=== PATIENT | female | born 1955 | race Caucasian/White ===

== ENCOUNTER 2020-08-09 21:40 | Observation (INO) | payer OTHER, SELFPAY ==
--- NOTE | 2020-08-09 20:30 | PC.NURSE ---
Patient admitted to room 106 and brought in via EMS. Patient placed on telemetry and oriented to the room. call light within reach. Patient bed in low position, and side rails up x2. Patient is alert and oriented.
--- NOTE | 2020-08-09 20:57 | P.HP_ITS ---
Providers/Chief Complaint Admitting Physician: Paras Bowser MD Chief Complaint: elevated troponin History of Present Illness Elizabeth Barrientos is a 64 year old female who presented to the [facility] with chief complaint of generalized weakness. Patient is stating that for last 1 to 2 weeks she has been feeling extremely weak, she has not noticed any diarrhea, vomiting, chest pain, orthopnea, PND, dysuria, fever, productive cough, headache, blurry vision. She has been compliant with her medications, she is smoking 1 pack/day, her p.o. intake has decreased significantly, sometimes she would only drink 1 soda at night. 2 to 3 days ago she sustained a fall because she was not able to bear any weight on her legs, her assisted her to get up. She has not sustained another fall so far, she also has home health services, once per week, she follows up with wound care at [place]. She has not noticed increased output from her colostomy which was done to prevent decubitus ulcer contamination. Previously she had indwelling catheter which was removed as well. Patient is stating that she was diagnosed with pneumonia 3 weeks ago for which she was treated with antibiotics, she is unsure about the antibiotic name. Patient was investigated at [facility], she had hypokalemia, hypomagnesemia which was corrected, her EKG showed sinus rhythm with nonspecific T wave changes, first troponin 57, second troponin 54, she did not complain of active chest pain shortness of breath apnea PND she was transferred to our facility for further investigation Covid antigen test negative, she has been afebrile, hypertensive, was saturating well on room air, Records reviewed At the time my evaluation her systolic blood pressures in the 170s, she saturating well on room air, complaining of generalized weakness no active chest pain shortness of breath, she is afebrile Heart rate in 70s, systolic blood pressure 180s, 96 saturation on room air, afebrile White count 9.3 Hemoglobin 13.9 Platelets 343 Sodium 133 Potassium 2.6 Calcium 9.2 Creatinine 0.7 Glucose 155 Albumin 4 Magnesium 1.0 Baseline troponin 57 Second troponin 54 Chest x-ray revealed interstitial infiltrate atelectasis versus pneumonia UA color yellow pH 7 Nitrites negative, ketones negative Blood trace Protein 3+ White count 6-10 RBC 0-2 Epithelial cells 0-5 Review of Systems Const: Reports: chills, body aches, change in appetite, fatigue and malaise; Denies: fever(s) or change in weight Eyes: Denies: change in vision ENMT: Denies: throat pain Card: Denies: chest pain Resp: Reports: non-productive cough GI: Denies: abdominal pain, diarrhea or constipation : Denies: flank pain Musc: Reports: muscle weakness Skin/Breast: Reports: lesions, dry skin, striae and other (Sacral ulcer,) Neuro: Denies: headache(s), difficulty walking, frequent falls, vertigo or Slurred speech present Psych: Reports: depression; Denies: anxiety Endo: Denies: polyuria Jake/Lymph: Denies: easy bruising All/Imm: Denies: urticaria Medications/Allergies Allergies Allergy/AdvReac Type Severity Reaction Status Date / Time atorvastatin AdvReac ADR-Cramping Verified 08/09/20 21:10 of the Muscles PFSH Acute PFSH: Medical History (Updated 08/09/20 @ 21:31 by Paras Bowser MD) 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) Atrial flutter Colostomy care COPD (chronic obstructive pulmonary disease) Depression Hypothyroidism Nicotine dependence Peripheral neuropathy Restless leg syndrome Sacral ulcer Type 2 diabetes mellitus Surgical History (Updated 08/09/20 @ 21:31 by Paras Bowser MD) H/O esophagogastroduodenoscopy H/O hernia repair H/O: hysterectomy History of removal of Port-a-Cath Hx of colonoscopy S/P cholecystectomy S/P tran-rectal abscess repair, follow-up exam Tubal ligation status Family History Other Cancer Social History Smoking and tobacco status: heavy tobacco smoker cigarettes [ Other cigarette details: 1 pack/day ] Alcohol intake: never Substance/Drug Use: never Lives independently: Yes Household members: spouse Housing: House Physical Exam Narrative: EXAM NARRATIVE: Middle-age female Appears more than stated age Extremely dehydrated Saturating well on room air Not showing signs of active distress Dry skin EOMI, PERRLA No neurological deficit No facial asymmetry S1, S2 variable Chest congestion, bilateral breath sounds with mild rhonchi no active wheezing Abdomen soft nontender, colostomy bag area nonsensitive Lower extremity no edema gangrene ulcer, dry skin noted Patient appears lethargic She is awake, alert oriented x3 GCS 15 Noticed skin excoriation A&P Assessment and plan (1) Generalized weakness: Status: Acute (2) Hypokalemia: Status: Acute (3) Hypomagnesemia: Status: Acute (4) Dehydration: Status: Acute (5) Elevated troponin I measurement: Status: Acute Additional A&P Information Generalized weakness Patient has severe dehydration along electrolyte abnormality which could contribute to her myalgias Covid antigen negative done at [place] Chest x-ray revealed interstitial infiltrate atelectasis versus pneumonia, no leukocytosis, patient has been afebrile recently was treated for bacterial pneumonia No active cough, shortness of breath, chest pain, dysuria She has been taking Lasix 20 mg, her p.o. intake has been extremely poor, which might have contributed towards electrolyte abnormality We will check TSH, Physical therapy evaluation Would keep her on maintenance fluid normal saline with potassium supplementation Hypokalemia and hypomagnesemia Patient is stating that she has not noticed increased output from colostomy No vomiting Replenish electrolytes Stop Lasix Elevated troponin No active chest pain, no shortness of breath orthopnea PND Negative delta troponin, EKG is not showing infarctive ischemic changes, In my opinion this is type II GA secondary to severe electrolyte abnormality, monitor overnight on telemetry floor We will obtain echo in the morning to see if she has any wall motion abnormalities Sacral decubitus ulcer Indwelling Smith catheter has been removed Home health services, she changes her wound dressing every other day, her assist her Open ulcer around mid gluteal region with maceration of wound edges, will need dry dressing, has mild yellow color drainage on the dressing Extremely dry skin Dehydration and history of hypothyroidism I will give her moisturizing agent, check TSH Encouraged her p.o. fluid Full code Consistent carb diet DVT prophylaxis Lovenox Attestations Medical Necessity Statement*: I am anticipating discharge in less than 48 hours currently need management for severe DrFlash Wilde abnormality, echo in the morning to rule out wall motion abnormality for nonspecific increase in troponin s Time Spent in Patient Care: (>than 50% of time spent in counselling and/or direct pt care on unit) . 50mins Coding Level of Care Code Acute Hunter Trapper for Chg Fwd Diagnoses Generalized weakness R53.1 Hypokalemia E87.6 Hypomagnesemia E83.42 Dehydration E86.0 Elevated troponin I measurement R77.8
[2020-08-09 20:58] VITALS: BMI 28.2
[2020-08-09 21:00] VITALS: BP 181/94; PULSE 74; RESP 19; TEMP 36.4; O2SAT 95
--- NOTE | 2020-08-09 21:33 | PC.NURSE ---
Patient states she is allergic to anesthesia. She says it causes muscle cramping and she could hardly move same with Lipitor.
[2020-08-09] MEDS: ALPRAZolam 0.25 mg Tablet 0.125 MG PO (22:20)
[2020-08-09] MEDS: enoxaparin 40 mg/0.4 mL Syringe SUBCUT (22:20)
[2020-08-09] MEDS: sodium chlor 0.45% +KCl 20 mEq 20 MEQ/1,000 ML BAG 75 MEQ IV (22:23)
[2020-08-09] MEDS: hyDRALAzine 20 mg/mL INJ 1 mL 5 MG IVP (22:29)
[2020-08-09 22:36] LABS: Glucose Point of Care 148 mg/dL (70-110)
[2020-08-09 23:23] VITALS: BP 152/64; PULSE 75; RESP 21; TEMP 36.6; O2SAT 94
[2020-08-09 23:46] LABS: SARS Covid-2 Antigen Negative (Negative)
[2020-08-10 01:31] VITALS: PULSE 57; RESP 18; O2SAT 95
[2020-08-10 04:00] VITALS: BP 156/96; PULSE 81; RESP 24; TEMP 36.8; O2SAT 93
[2020-08-10 05:39] LABS: Basophils # 0.1 10^3/uL (0.0-0.1); Basophils % 0.9 %; Eosinophils # 0.2 10^3/uL (0.0-0.8); Eosinophils % 2.1 %; Hematocrit 36.9 % (37.0-47.0); Hemoglobin 12.4 g/dL (11.5-15.3); Lymphocytes # 1.6 10^3/uL (0.8-4.8); Lymphocytes % 18.4 %; Mean Corpuscular HGB Conc 33.6 g/dL (30.0-36.0); Mean Corpuscular Hemoglobin 31.6 pg (28.0-34.0); Mean Corpuscular Volume 94.1 fL (81-99); Mean Platelet Volume 9.3 fL (7.4-10.4); Monocytes # 0.8 10^3/uL (0.2-0.9); Monocytes % 8.7 %; Neutrophils # 6.07 10^3/uL (1.8-7.7); Neutrophils % 69.6 %; Nucleated Red Blood Cells % 0 %; Platelet Count 304 10^3/cmm (130-400); Red Blood Count 3.92 10^6/uL (4.1-5.3); Red Cell Distribution Width 12.7 % (12.1-15.1); White Blood Count 8.7 10^3/uL (4.0-10.0)
[2020-08-10 06:11] LABS: Procalcitonin 0.08 ng/mL (0-0.5)
[2020-08-10 06:12] LABS: Anion Gap 13.9 (5-19); Blood Urea Nitrogen 6 mg/dL (8-23); Calcium 8.5 mg/dL (8.5-10.5); Carbon Dioxide 27 mmol/L (22-29); Chloride 96 mmol/L (98-107); Glucose 134 mg/dL (65-115); Osmolality Calculated 278 mOsm/kg (285-295); Sodium 134 mmol/L (136-145); Thyroid Stimulating Hormone 1.85 uIU/mL (0.27-4.20)
[2020-08-10] MEDS: levothyroxine 88 mcg Tablet PO (06:23)
[2020-08-10] MEDS: HYDROcodone-acetaminophen 5-325 mg Tablet 1 TAB PO ×3 (06:23→14:34)
[2020-08-10 06:37] LABS: Potassium 2.9 mmol/L (3.5-5.1)
[2020-08-10 06:40] LABS: Glucose Point of Care 148 mg/dL (70-110)
[2020-08-10 07:13] VITALS: BP 174/79; PULSE 82; RESP 26; TEMP 35.9; O2SAT 97
[2020-08-10] MEDS: metoprolol succinate ER (24 HR) 50 mg Tablet PO (08:13)
[2020-08-10] MEDS: aspirin 325 mg EC Tablet PO (08:13)
[2020-08-10] MEDS: pantoprazole DR 40 mg Tablet PO (08:13)
[2020-08-10] MEDS: lisinopril 20 mg Tablet PO ×2 (08:13→17:31)
--- NOTE | 2020-08-10 09:23 | PC.CHAP ---
Pastoral Care Encounter/Spiritual Assessment Type of Contact [] Declined automotive service writer visit [] Patient/Family/Request visit [] Outpatient visit [] Follow-up visit [] Physician referral [] Code/Alert [x] Routine visit [] Staff referral [] Actively dying [] Patient sleeping [] Family support [] [] Out of room [] Palliative care [] [] Receiving care in room [] Pre-surgical visit [] Trauma [] Long length of stay [] ICU visit [] Other: Relational/Emotional Strength [] Patient feels connected with others/family/visitors/staff [] Distress [] Loneliness/isolation [] Abandonment Spirituality of Patient [] Person of Diane [] Attends Faith of their Diane [] Believes in Prayer [] Reads Bible or Church materials [] There are Spiritual issues to be addressed Rn Endocrinology Interventions [x] Prayer [x] Active listening [x] Non-anxious presence [x] Spiritual/emotional support [] Crisis/trauma care [] Spiritual counseling [] Bereavement support [] Provided bereavement packet [] Provided Bible/devotional materials [] Provided toy/stuffed animal, coloring book to patient or family member [] Provided Communion [] Anointing/Irene [] Salvation [x] Completed spiritual assessment [] Other: Impact on Illness or Injury [] Angry [] Fearful [] Anxious [] Often cries [] Exhaustion [] Unable to work [] Unable to attend protestant [] Unable to walk/stand [] Unable to read [] Unable to drive [] Unable to eat/drink [] Unable to sleep [] Unable to be with family [] Patient intubated [] Other: Summary patient in pain. Time spent with patient 5 min
[2020-08-10] MEDS: insulin glargine 100 units/1 mL 40 UNIT SUBCUT (09:37)
[2020-08-10 11:02] VITALS: BP 174/83; PULSE 60; PULSE 72; RESP 18; RESP 26; TEMP 36.4; O2SAT 94; O2SAT 95
[2020-08-10 11:33] LABS: Glucose Point of Care 134 mg/dL (70-110)
[2020-08-10 12:34] LABS: Magnesium 1.8 mg/dL (1.7-2.3); Troponin T (5th) Once 67 ng/L (0-10)
[2020-08-10] MEDS: potassium chloride ER 20 mEq Tablet 40 MEQ PO (12:56)
[2020-08-10] MEDS: ALPRAZolam 0.25 mg Tablet 0.125 MG PO (14:34)
--- NOTE | 2020-08-10 14:41 | PC.NURSE ---
Pt requested, new bandages for her elbows, my elbow is bleeding both dressing intact, small amount of drainage noted on the left. . Pt requested pain and nerve med, both admin, see MAR. Pt requested colostomy to be burped. Burping of the colostomy done. Room check, BSC emptied. TV on and channel selected. No mre needs per pt.
[2020-08-10 15:03] VITALS: BP 180/98; PULSE 73; RESP 21; TEMP 37; O2SAT 93
[2020-08-10 16:21] LABS: Glucose Point of Care 155 mg/dL (70-110)
[2020-08-10 17:41] LABS: Troponin T (5th) Once 63 ng/L (0-10)
[2020-08-10 18:10] VITALS: BP 180/98; PULSE 73; RESP 21; TEMP 37; O2SAT 93
--- NOTE | 2020-08-10 18:10 | PC.NURSE ---
Discharge instructions provided and discussed. Carenotes for dehydration,hypomagnesia, hypokalemia, generalized weakness, magnesium citrate and potassium supplement reviewed with pt and spouse. Follow up appts to be made by pt and discussions needed with PCP , discussed. No further questions. Pt discharged. To POV at entrance via W/C. All belongings with pt.
--- NOTE | 2020-08-10 19:29 | P.DS_ITS ---
Discharge Providers Date of Admission: 08/09/20 21:40 Date of Discharge: August 10, 2020 Attending Provider at Admission: Paras Bowser MD Attending Provider at Discharge: Leroy Brunner Diagnoses at Discharge Discharge Diagnosis (1) Generalized weakness: Status: Acute (2) Hypokalemia: Status: Acute (3) Hypomagnesemia: Status: Acute (4) Dehydration: Status: Acute (5) Elevated troponin I measurement: Status: Acute (6) Poorly-controlled hypertension: Status: Acute (7) Poor appetite: Status: Acute (8) Gastroparesis: Status: Acute Reason for Visit Reason for Visit: elevated troponin Hospital Course Hospital Course 64-year-old lady with history of COPD, DM 2, current smoker, hypothyroidism, sacral decubitus ulcer, indwelling Smith catheter, was transferred over for observation from [facility] after finding of elevated troponin, presenting there after 1-2 weeks of generalized weakness. There is noted to be dehydrated, with hypokalemia, hypomagnesemia. 2 to 3 days previously she s ustained a fall. Reported 3 weeks previously was treated for pneumonia. On admission noted to be dehydrated, received IV hydration. Hypokalemia and hypomagnesemia were replaced. She was tested by rapid antigen for COVID-19 while in the hospital which was negative. PCR testing was being requested at [facility] prior to transfer. Eran higher than at [facility] at 67-63, but overall stable without significant elevation. She has remained chest pain-free. Reassessed echocardiogram on which was found to have normal ejection fraction, 63%, grade 2 diastolic dysfunction. No regional wall motion abnormality was noted. She felt much better after rehydration, replacement of electrolytes. TSH is normal. She felt strong enough to return home. We did discuss concern for possible underlying coronary disease given multiple risk factors. Elevated risk of ACS. Discussed options with staying here for additional assessment by stress testing, versus outpatient testing. She is preferring to follow-up on outpatient basis. Understands to seek medical attention immediately in case of any concerning symptoms. Given dehydration at this time her Lasix is discontinued. Please reassess again when this may be needed. Discussed with her. She also has quite poor oral intake. This along with diuresis may be responsible for her electrolyte deficiencies. Does have diabetes, and does report symptoms of food staying a long time in her stomach. Discussed with her strategy of more frequent smaller meals throughout the day. Will also refer her for additional assessment by gastric emptying study. Please consider referral for additional endoscopic evaluation given smoking history, elevated risk of gastric cancer. Follow-up on these assessments, as well as please continue follow-up with chronic conditions. She does appear to have suboptimally controlled blood pressure. Please continue to reassess and assist with smoking cessation. Please see full notes and work-up for details. Do not hesitate to contact with any questions. Physical Exam Const: COMMON NORMALS: no acute distress, patient oriented x3 and alert GENERAL APPEARANCE: comfortable ORIENTATION/CONSCIOUSNESS: Yes awake OTHER: Sitting up in bed. Reports feeling much better, stronger, wants to return home. HENMT: COMMON NORMALS: oropharynx normal Neck/C-Spine: COMMON NORMALS: no JVD Resp: COMMON NORMALS: normal respiratory effort and clear to auscultation bilaterally AUSCULTATION: clear to auscultation bilaterally Cardio: COMMON NORMALS: no JVD, regular rhythm, S1 normal heart sound present, S2 normal heart sound present and No murmurs present (Cardio) RHYTHM: regular rhythm HEART SOUNDS: S1 normal heart sound present and S2 normal heart sound present GI: COMMON NORMALS: Normal to inspection, nondistended, normoactive bowel sounds present, Soft to palpation and non-tender PALPATION: Yes Soft to palpation Extremity: COMMON NORMALS: no joint enlargement and no pedal edema Neuro: COMMON NORMALS: patient oriented x3 and moves all extremities SENSORIUM/ORIENTATION: Yes alert Skin: COMMON NORMALS: no rashes or lesions noted GENERAL SKIN EXAM: no rashes or lesions noted and dry skin Discharge Data Data Completed and Pending: Completed Studies During Hospitalization Category Date Time Status CV echo complete* [id number] Routine Ultrasound 08/10/20 21:40 Completed Labs from last 24 hours 08/10/20 08/10/20 08/10/20 17:10 16:12 11:03 WBC RBC Hgb Hct MCV MCH MCHC RDW Plt Count MPV Neut % (Auto) Lymph % (Auto) [place] % (Auto) Eos % (Auto) Baso % (Auto) Neut # (Auto) Lymph # (Auto) [place] # (Auto) Eos # (Auto) Baso # (Auto) Nucleated RBC % (a uto) Nucleated RBCs # Sodium Potassium Chloride Carbon Dioxide Anion Gap BUN Creatinine GFR Calculation Glucose POC Glucose 155 134 Calculated Osmolal ity Calcium Magnesium Troponin T Gen 5 n g/L 63 H Procalcitonin TSH SARS-CoV-2 Ag (Rap id) 08/10/20 08/10/20 08/10/20 06:35 04:34 04:34 WBC RBC Hgb Hct MCV MCH MCHC RDW Plt Count MPV Neut % (Auto) Lymph % (Auto) [place] % (Auto) Eos % (Auto) Baso % (Auto) Neut # (Auto) Lymph # (Auto) [place] # (Auto) Eos # (Auto) Baso # (Auto) Nucleated RBC % (a uto) Nucleated RBCs # Sodium Potassium Chloride Carbon Dioxide Anion Gap BUN Creatinine GFR Calculation Glucose POC Glucose 148 Calculated Osmolal ity Calcium Magnesium 1.8 Troponin T Gen 5 n g/L 67 H Procalcitonin TSH SARS-CoV-2 Ag (Rap id) 08/10/20 08/10/20 08/10/20 04:34 04:34 04:34 WBC 8.7 RBC 3.92 L Hgb 12.4 Hct 36.9 L MCV 94.1 MCH 31.6 MCHC 33.6 RDW 12.7 Plt Count 304 MPV 9.3 Neut % (Auto) 69.6 Lymph % (Auto) 18.4 [place] % (Auto) 8.7 Eos % (Auto) 2.1 Baso % (Auto) 0.9 Neut # (Auto) 6.07 Lymph # (Auto) 1.6 [place] # (Auto) 0.8 Eos # (Auto) 0.2 Baso # (Auto) 0.1 Nucleated RBC % (a uto) 0 Nucleated RBCs # 0.0 Sodium 134 L Potassium 2.9 L Chloride 96 L Carbon Dioxide 27 Anion Gap 13.9 BUN 6 L Creatinine 0.6 GFR Calculation 101.0 Glucose 134 H POC Glucose Calculated Osmolal ity 278 L Calcium 8.5 Magnesium Troponin T Gen 5 n g/L Procalcitonin 0.08 TSH 1.85 SARS-CoV-2 Ag (Rap id) 08/09/20 08/09/20 23:25 22:19 WBC RBC Hgb Hct MCV MCH MCHC RDW Plt Count MPV Neut % (Auto) Lymph % (Auto) [place] % (Auto) Eos % (Auto) Baso % (Auto) Neut # (Auto) Lymph # (Auto) [place] # (Auto) Eos # (Auto) Baso # (Auto) Nucleated RBC % (a uto) Nucleated RBCs # Sodium Potassium Chloride Carbon Dioxide Anion Gap BUN Creatinine GFR Calculation Glucose POC Glucose 148 Calculated Osmolal ity Calcium Magnesium Troponin T Gen 5 n g/L Procalcitonin TSH SARS-CoV-2 Ag (Rap id) Negative Vitals: Last Vital Signs Temp 98.6 F 08/10/20 18:10 Pulse 73 08/10/20 18:10 Resp 21 H 08/10/20 18:10 BP 180/98 08/10/20 18:10 Pulse Ox 93 08/10/20 18:10 Discharge Plan Discharge Patient Disposition: Home Condition: Stable Prescriptions: New potassium chloride 10 mEq capsule, extended release 10 meq PO DAILY Qty: 30 RF: 0 magnesium citrate 100 mg tablet 100 mg PO DAILY Qty: 30 RF: 0 Continued loperamide 2 mg Capsule 2 mg PO Q4H PRN (Reason: Diarrhea) RF: 0 metoprolol succinate 50 mg Tablet Extended Release 24 Hr 50 mg PO DAILY RF: 0 lisinopril 20 mg Tablet 20 mg PO BID RF: 0 Compazine 10 mg Tablet 10 mg PO Q6H PRN (Reason: Nausea) RF: 0 levothyroxine 88 mcg Tablet 88 mcg PO 0600 RF: 0 alprazolam 0.25 mg Tablet 0.25 mg PO TID PRN (Reason: Anxiety) RF: 0 aspirin 325 mg Tablet,Delayed Release (Dr/Ec) 325 mg PO DAILY RF: 0 trazodone 100 mg Tablet 100 mg PO BEDTIME RF: 0 hydrocodone-acetaminophen 7.5-325 mg Tablet 1 tab PO Q4H PRN (Reason: Pain) RF: 0 Benadryl 25 mg Capsule 50 mg PO BEDTIME PRN (Reason: Insomnia) RF: 0 Nitrostat 0.4 mg Tablet, Sublingual 0.4 mg SUBLINGUAL Q5M PRN (Reason: Chest Pain) RF: 0 gabapentin 300 mg Capsule 600 mg PO TID RF: 0 omeprazole 20 mg Capsule,Delayed Release(Dr/Ec) 20 mg PO DAILY RF: 0 insulin lispro 100 unit/mL Insulin Pen 14 unit SUBCUT TIDWM RF: 0 duloxetine 30 mg Capsule,Delayed Release(Dr/Ec) 60 mg PO BEDTIME RF: 0 cholecalciferol (vitamin D3) 1,250 mcg (50,000 unit) Capsule 1,250 mcg PO DAILY RF: 0 Symbicort 160-4.5 mcg/actuation Hfa Aerosol Inhaler 2 puff INHALATION BID RF: 0 Lantus Solostar U-100 Insulin 100 unit/mL (3 mL) Insulin Pen 40 unit SUBCUT BID RF: 0 Slow-Mag 71.5 mg Tablet,Delayed Release (Dr/Ec) 71.5 mg PO BID RF: 0 naloxone 4 mg/actuation [place],Non-Aerosol 4 mg INTRANASAL Q2M PRN (Reason: Opiate Reversal) RF: 0 albuterol sulfate 1.25 mg/3 mL Solution For Nebulization 1.25 mg INHALATION QID PRN (Reason: Shortness Of Breath) RF: 0 coenzyme Q10 10 mg Capsule 10 mg PO DAILY RF: 0 cinnamon bark 500 mg Capsule 500 mg PO DAILY RF: 0 Discontinued furosemide 20 mg Tablet 20 mg PO DAILY RF: 0 Discharge Orders: Discharge Order (Routine); Ordered 08/10/20 Ordered By: Leroy Brunner Other Ambulatory Orders: Sestamibi Stress Test Request (Routine) Timeframe: 2 Days Facility: [facility] - Location: Cardiac Diagnostic Laboratory Ordered By: Leroy Brunner [place] [address] (Routine) Timeframe: 1 Week Facility: [facility] - Location: Radiology Ordered By: Leroy Brunner Referrals: Derrell Green [Family Provider] - 4-7 days (Please, call for an follow-up appointment with Derrell Green in 4 to 7 days. . Also, Centralized Scheduling will contact you to schedule you r Lexiscan stress test and Gastric empying. If you haven't heard from them by tomorrow afternoon. Please call ) Discharge Diet: Advance as tolerated and Cardiac Discharge Activity: Increase activity as tolerated and As per PT/OT instructions Patient Instructions: Potassium Chloride (By mouth), Magnesium Citrate (By mouth), Dehydration (DC), Hypokalemia (DC), Hypomagnesemia (DC), Weakness (Generalized) Activity Restrictions/Additional Instructions: Please add nutritional supplements to meals, Glucerna or similar. Please try to space out your meals through the day with smaller meals but more frequently. This may work a little bit better for your GI tract. Follow with your primary care doctor for reassessment and additional strategies to reduce chances of malnutrition and electrolyte deficiencies. Potassium and magnesium supplementations are added at this time. Have your primary care doctor reassess your potassium Museum and other electrolyte levels. Magnesium supplementation can sometimes give you diarrhea if taken in larger doses. Please discuss with your primary care doctor follow-up of the stress testing for assessment for possible coronary disease due to noted elevated troponin while in the hospital. Please discuss with your doctor regarding assessment for possible gastroparesis, and results of gastric emptying study. Discuss additional assessment or treatment strategies in case your symptoms of food getting in your stomach persist. Discussed consideration of additional assessment by endoscopic evaluation to exclude other more dangerous causes with risk for stomach cancer with smoking. Please stop smoking, work with your primary care provider to help you with smoking cessation given risk of progression of cardiovascular disease, heart attack, stroke, various cancers, and other comorbidities. Please note your Lasix for now are held due to dehydration presentation. Please discuss with your primary care doctor whether this will need to be resumed in the future. Discharge Attestations Time Spent in Discharge Care*: greater than 30 min Quality Metrics Clinical Quality Measures During this hospital stay, did patient experience: None Coding Level of Care Code Acute Chief Nurse Executive for Kseniag Fwd Diagnoses Generalized weakness R53.1 Hypokalemia E87.6 Hypomagnesemia E83.42 Dehydration E86.0 Elevated troponin I measurement R77.8 Poorly-controlled hypertension I10 Poor appetite R63.0 Gastroparesis K31.84
--- NOTE | 2020-08-10 21:40 | USCV_ITS ---
Elizabeth Barrientos Age: 64 Gender: F : 1955 Exam Date: 08/10/2020 05:57 Ordering Phys: Paras Bowser MD Technologist: Mell Bledsoe [place] [facility] [place]: TYPE 2 IN BP: 152 / 64 HR: 75 Rhythm: Sinus Technical Quality: Adequate MEASUREMENTS (Male / Female) Normal Values 2D ECHO LV Diastolic Diameter PLAX 3.2 cm 4.2 - 5.9 / 3.9 - 5.3 cm LV Systolic Diameter PLAX 3.0 cm LV Chamber Size 3.8 cm IVS Diastolic Thickness 1.3 cm 0.6 - 1.0 / 0.6 - 0.9 cm IVS Systolic Thickness 1.8 cm LVPW Diastolic Thickness 1.4 cm 0.6 - 1.0 / 0.6 - 0.9 cm LVPW Systolic Thickness 1.7 cm RV Chamber Size 3.2 cm LVOT Diameter 2.0 cm LV Ejection Fraction 2D Teich 1.7 % LV Ejection Fraction MOD 2C 53.4 % LV Ejection Fraction 2C AL 50.3 % LA Diameter 4.2 cm LA Width 3.9 cm LA Height 4.7 cm RA Width 3.6 cm RA Height 3.9 cm Aorta at Sinotubular Diameter 2.8 cm M-MODE LV Diastolic Diameter MM 6.0 cm 4.2 - 5.9 / 3.9 - 5.3 cm LV Systolic Diameter MM 3.9 cm LV Ejection Fraction MM Teich 63.0 % IVS Diastolic Thickness MM 0.9 cm 0.6 - 1.0 / 0.6 - 0.9 cm IVS Systolic Thickness MM 1.7 cm LVPW Diastolic Thickness MM 1.3 cm 0.6 - 1.0 / 0.6 - 0.9 cm LVPW Systolic Thickness MM 1.9 cm RV Diastolic Diameter MM 0.6 cm Aortic Annulus Diameter 3.5 cm LA Ao Ratio MM 1.4 MV E Point Septal Separation 0.6 cm DOPPLER AV Peak Velocity 113.0 cm/s LVOT Peak Velocity 92.0 cm/s AV Area Cont Eq vti 2.7 cm squared AV Area Cont Eq pk 2.6 cm squared MV Area PHT 5.6 cm squared Mitral E to A Ratio 1.7 MV E' Velocity 67.0 cm/s Mitral E to MV E' Ratio 10.9 Mitral E to LV E' Lateral Ratio 11.4 Mitral E to LV E' Septal Ratio 10.5 TR Peak Velocity 276.0 cm/s TR Peak Gradient 30.5 mmHg TR Mean Velocity 203.5 cm/s TR Mean Gradient 18.2 mmHg TR Velocity Time Integral 74.6 cm TV Peak E Velocity 56.0 cm/s Right Atrial Pressure 3.0 mmHg Pulmonary Artery Systolic Pressu 33.5 mmHg PV Peak Velocity 86.0 cm/s RV Acceleration Time 0.1 s RV Ejection Time 0.4 s RV AcT/ET 0.3 FINDINGS Left Ventricle Normal left ventricular cavity size. Normal left ventricular systolic function. No regional wall motion abnormalities. Left ventricular ejection fraction is estimated at 63 %. Grade II/IV diastolic dysfunction, moderately elevated filling pressures. Right Ventricle The right ventricle is normal in size and function. Right Atrium The right atrium is normal in size. Left Atrium The left atrium is normal in size. Mitral Valve Moderately thickened mitral valve. Moderate mitral annular calcification. No mitral valve stenosis. Mild mitral valve regurgitation. Aortic Valve Mild aortic valve calcification. No aortic valve stenosis. No aortic valve regurgitation. Tricuspid Valve Trace tricuspid valve regurgitation. Pulmonic Valve Structurally normal pulmonic valve without significant stenosis. There is no pulmonic regurgitation. Pericardium Normal pericardium without effusion. Aorta Normal ascending aorta dimension. CONCLUSIONS 1-Normal left ventricular cavity size. Normal left ventricular systolic function. No regional wall motion abnormalities. Left ventricular ejection fraction is estimated at 63 %. Grade II/IV diastolic dysfunction, moderately elevated filling pressures. 2-Moderately thickened mitral valve. Moderate mitral annular calcification. No mitral valve stenosis. Mild mitral valve regurgitation. 3-Mild aortic valve calcification. No aortic valve stenosis. No aortic valve regurgitation. 4-There is no pericardial effusion. 5-Pulmonary artery systolic pressure is within normal limits. 6-Right atrial pressure is around 5 mm of mercury. 7-There are no prior echocardiogram studies to compare. Paras Serna MD (Electronically Signed) Final Date: 10 August 2020 16:59 S
--- NOTE | 2020-08-11 17:27 | PC.RESP ---
Pulmonary Rehab information sent to patient.
== END 2020-08-10 18:15 | disposition home or self-care (01) ==
PROVIDERS: Admitting Provider Internal Medicine; Family Provider Family Medicine; Visit Provider Internal Medicine
DX: R53.1 Weakness (principal); E87.6 Hypokalemia; E83.42 Hypomagnesemia; E86.0 Dehydration; R77.8 Other specified abnormalities of plasma proteins; E11.9 Type 2 diabetes mellitus without complications; K31.84 Gastroparesis; R63.0 Anorexia; I10 Essential (primary) hypertension; F17.210 Nicotine dependence, cigarettes, uncomplicated; J44.9 Chronic obstructive pulmonary disease, unspecified; E03.9 Hypothyroidism, unspecified
CPT/HCPCS: 12345; 36415; 36416; 80048; 82962; 83735; 84145; 84443; 84484; 85025; 87426; 93306; 96360; 96361; 96372; 96375; G0378; G0379; J0360; J1650; J1815 ×2